=== PATIENT | male | born 1970 | race Caucasian/White ===

== ENCOUNTER 2018-03-12 00:57 | Emergency (ER) | payer BC ==
[2018-03-12] MEDS ORDERED: HYDROmorphone 1 MG/ML 1 ML SYRINGE IM STA (01:36)
--- NOTE | 2018-03-12 03:00 | XR ---
EXAMINATION TYPE: XR ankle complete LT DATE OF EXAM: 03/12/2018 COMPARISON: NONE HISTORY: Injury. Pain. TECHNIQUE: 3 views FINDINGS: There is transverse fracture of the medial malleolus. There is comminuted fracture distal s haft of the fibula. There is 2 x 1 cm chip fracture of the posterior malleolus. There is no dislocati on. There is an Achilles calcaneal spur. IMPRESSION: trimalleolar type fracture of the left ankle. No dislocation.
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
[2018-03-12] MEDS ORDERED: HYDROmorphone 0.5 MG/0.5 ML SYRINGE IM STA (05:14)
[2018-03-12 06:41] VITALS: BP 138/78; PULSE 78; RESP 19; TEMP 97.9
== END 2018-03-12 06:23 | disposition home or self-care (01) ==
LOC: EC 00:57
DX: S82.852A Displaced trimalleolar fracture of left lower leg, initial encounter for closed fracture (principal); V86.52XA Driver of snowmobile injured in nontraffic accident, initial encounter; Y93.I9 Activity, other involving external motion; Y92.828 Other wilderness area as the place of occurrence of the external cause; F17.200 Nicotine dependence, unspecified, uncomplicated
CPT/HCPCS: 29515; 96372; 99283